=== PATIENT | female | born 1950 | race Caucasian/White ===

== ENCOUNTER → 2016-06-25 | Outpatient (CLI) | payer SELFPAY | LOC: LAB 11:47 | DX: R79.89 Other specified abnormal findings of blood chemistry (principal) ==

== ENCOUNTER → 2016-12-02 | Outpatient (CLI) | payer SELFPAY | LOC: LAB 09:48 | DX: Z00.00 Encounter for general adult medical examination without abnormal findings (principal); Z12.11 Encounter for screening for malignant neoplasm of colon; M35.00 Sjogren syndrome, unspecified; M85.80 Other specified disorders of bone density and structure, unspecified site; E03.9 Hypothyroidism, unspecified ==

== ENCOUNTER → 2016-12-08 | Outpatient (CLI) | payer SELFPAY | LOC: LAB 10:41 | DX: Z00.00 Encounter for general adult medical examination without abnormal findings (principal); Z12.11 Encounter for screening for malignant neoplasm of colon ==

== ENCOUNTER → 2017-01-05 | Outpatient (CLI) | payer SELFPAY | LOC: MAMMO 12-23 09:57 | DX: Z12.31 Encounter for screening mammogram for malignant neoplasm of breast (principal) | CPT/HCPCS: G0202 ==

== ENCOUNTER → 2017-01-13 | Outpatient (CLI) | payer SELFPAY | LOC: MAMMO 16:01 | DX: Z12.31 Encounter for screening mammogram for malignant neoplasm of breast (principal); N64.89 Other specified disorders of breast ==

== ENCOUNTER → 2018-03-21 | Outpatient (CLI) | payer MEDICARE, OTHER | LOC: RAD 09:46 | DX: M81.0 Age-related osteoporosis without current pathological fracture (principal); M85.852 Other specified disorders of bone density and structure, left thigh; M85.851 Other specified disorders of bone density and structure, right thigh ==

== ENCOUNTER → 2018-03-21 | Outpatient (CLI) | payer MEDICARE, OTHER | LOC: MAMMO 09:14 | DX: Z12.31 Encounter for screening mammogram for malignant neoplasm of breast (principal) ==

== ENCOUNTER → 2018-05-24 | Outpatient (CLI) | payer MEDICARE, OTHER | LOC: RAD 14:29 | DX: M25.571 Pain in right ankle and joints of right foot (principal); M79.671 Pain in right foot ==

== ENCOUNTER → 2018-07-03 | Outpatient (CLI) | payer MEDICARE, OTHER ==
[2018-07-04 06:56] LABS: CLUE CELLS PRESENT (Not Observd)
== END ==
LOC: LAB 10:49
PROVIDERS: Physician Assistant
DX: N94.9 Unspecified condition associated with female genital organs and menstrual cycle (principal)
CPT/HCPCS: Q0111

== ENCOUNTER → 2018-08-07 | Outpatient (CLI) | payer MEDICARE, OTHER ==
[2018-08-07 11:07] LABS: EOS # 0.5 (0.04-0.40); EOS % 7.1 % (1.0-5.0); HEMATOCRIT 38.3 % (37.0-47.0); HEMOGLOBIN 12.3 g/dL (12.5-16.0); LYMPH# 1.6 (1.50-4.00); MEAN CELL VOLUME 96 fl (78-100); MEAN CORPUSCULAR HEMOGLOBIN 31 pg (27-31); MEAN CORPUSCULAR HGB CONC 32 g/dL (33-37); MEAN PLATELET VOLUME 11.2 fl (7.4-10.4); MONO # 0.7 (0.20-0.80); NEU # 3.7 (1.40-6.50); PLATELET COUNT 231 K/mm3 (130-400); RED CELL DISTRIBUTION WIDTH 12.4 % (11.5-14.5); WHITE BLOOD COUNT 6.5 K/mm3 (4.8-10.8)
[2018-08-07 11:45] LABS: ALBUMIN 4.3 g/dL (3.4-4.8); POTASSIUM 3.9 mmol/L (3.5-5.1); TOTAL BILIRUBIN 0.4 mg/dL (0.2-1.2); TOTAL PROTEIN 8.2 g/dL (6.2-8.1)
[2018-08-07 12:33] LABS: ERYTHROCYTE SEDIMENTATION RATE 43 mm/hr (0-30)
== END ==
LOC: LAB 10:43
PROVIDERS: Internal Medicine
DX: Z00.00 Encounter for general adult medical examination without abnormal findings (principal); M81.0 Age-related osteoporosis without current pathological fracture; E03.9 Hypothyroidism, unspecified

== ENCOUNTER → 2018-10-10 | Outpatient (CLI) | payer MEDICARE, OTHER | LOC: LAB 09:30 | DX: Z00.00 Encounter for general adult medical examination without abnormal findings (principal); E03.9 Hypothyroidism, unspecified; M81.0 Age-related osteoporosis without current pathological fracture ==

== ENCOUNTER → 2018-11-30 | Outpatient (CLI) | payer MEDICARE, OTHER ==
[2018-11-30 14:18] LABS: CLUE CELLS NOT OBSERVED (Not Observd)
== END ==
LOC: LAB 10:32
PROVIDERS: Physician Assistant
DX: N89.8 Other specified noninflammatory disorders of vagina (principal); R10.2 Pelvic and perineal pain
CPT/HCPCS: Q0111

== ENCOUNTER → 2019-01-08 | Outpatient (CLI) | payer MEDICARE, OTHER | LOC: LAB 11:14 | DX: Z00.00 Encounter for general adult medical examination without abnormal findings (principal); M81.0 Age-related osteoporosis without current pathological fracture; E03.9 Hypothyroidism, unspecified ==

== ENCOUNTER → 2019-03-01 | Outpatient (CLI) | payer MEDICARE, OTHER | LOC: LAB 10:26 | DX: Z00.00 Encounter for general adult medical examination without abnormal findings (principal); E03.4 Atrophy of thyroid (acquired); M81.0 Age-related osteoporosis without current pathological fracture ==

== ENCOUNTER → 2019-03-14 | Outpatient (CLI) | payer MEDICARE, OTHER | LOC: LAB 10:57 | DX: Z00.00 Encounter for general adult medical examination without abnormal findings (principal); M81.0 Age-related osteoporosis without current pathological fracture; E03.9 Hypothyroidism, unspecified ==

== ENCOUNTER → 2019-03-20 | Outpatient (CLI) | payer MEDICARE, OTHER | LOC: RAD 09:22 | DX: M79.672 Pain in left foot (principal) ==

== ENCOUNTER → 2019-03-22 | Outpatient (CLI) | payer MEDICARE, OTHER | LOC: RAD 12:00 | DX: M84.372A Stress fracture, left ankle, initial encounter for fracture (principal); R60.0 Localized edema; M81.0 Age-related osteoporosis without current pathological fracture ==

== ENCOUNTER → 2019-04-04 | Outpatient (CLI) | payer MEDICARE, OTHER ==
[~2019-04-04] VITALS: Ht 157.5 cm; Wt 50.0 kg
[~2019-04-04] MED LIST: LEVO-T50 MCG PO
[2019-04-04 10:12] VITALS: BP 127/53
[2019-04-04 10:52] VITALS: BP 116/48
== END ==
LOC: AMSURD 09:49
DX: M81.0 Age-related osteoporosis without current pathological fracture (principal)
CPT/HCPCS: J3489

== ENCOUNTER → 2019-04-06 | Outpatient (CLI) | payer MEDICARE, OTHER ==
[2019-04-04 10:52] VITALS: BP 116/48
== END ==
LOC: RAD 13:23
DX: M84.375A Stress fracture, left foot, initial encounter for fracture (principal)

== ENCOUNTER → 2019-06-18 | Outpatient (CLI) | payer MEDICARE, OTHER ==
[2019-04-04 10:52] VITALS: BP 116/48
== END ==
LOC: LAB 13:40
DX: E03.9 Hypothyroidism, unspecified (principal)

== ENCOUNTER → 2019-09-25 | Outpatient (CLI) | payer MEDICARE, OTHER ==
[2019-04-04 10:52] VITALS: BP 116/48
== END ==
LOC: LAB 10:41
DX: E03.9 Hypothyroidism, unspecified (principal)

== ENCOUNTER → 2019-11-12 | Outpatient (CLI) | payer MEDICARE, OTHER ==
[2019-04-04 10:52] VITALS: BP 116/48
[2019-11-12 13:50] LABS: EOS # 0.1 (0.04-0.40); EOS % 1.1 % (1.0-5.0); HEMATOCRIT 38.5 % (37.0-47.0); HEMOGLOBIN 12.2 g/dL (12.5-16.0); LYMPH# 1.3 (1.50-4.00); MEAN CELL VOLUME 97 fl (78-100); MEAN CORPUSCULAR HEMOGLOBIN 31 pg (27-31); MEAN CORPUSCULAR HGB CONC 32 g/dL (33-37); MONO # 0.9 (0.20-0.80); NEU # 5.7 (1.40-6.50); PLATELET COUNT 270 K/mm3 (130-400); RED BLOOD COUNT 3.98 M/mm3 (4.10-5.30); RED CELL DISTRIBUTION WIDTH 12.8 % (11.5-14.5); WHITE BLOOD COUNT 7.9 K/mm3 (4.8-10.8)
[2019-11-12 13:52] LABS: ALBUMIN 4.3 g/dL (3.4-4.8); POTASSIUM 4.2 mmol/L (3.5-5.1)
[2019-11-12 13:53] LABS: CALCIUM 9.5 mg/dL (8.3-10.5)
[2019-11-12 13:55] LABS: TOTAL PROTEIN 7.8 g/dL (6.2-8.1)
[2019-11-12 13:57] LABS: TOTAL BILIRUBIN 0.4 mg/dL (0.2-1.2)
[2019-11-12 14:37] LABS: ERYTHROCYTE SEDIMENTATION RATE 14 mm/hr (0-30)
== END ==
LOC: LAB 13:15
PROVIDERS: Internal Medicine
DX: Z12.11 Encounter for screening for malignant neoplasm of colon (principal); E78.2 Mixed hyperlipidemia; M81.0 Age-related osteoporosis without current pathological fracture; E03.9 Hypothyroidism, unspecified; M35.03 Sjogren syndrome with myopathy

== ENCOUNTER → 2020-04-02 | Outpatient (CLI) | payer MEDICARE, OTHER ==
[2019-04-04 10:52] VITALS: BP 116/48
== END ==
LOC: RAD 10:49
DX: Z13.820 Encounter for screening for osteoporosis (principal); M81.0 Age-related osteoporosis without current pathological fracture

== ENCOUNTER → 2020-04-02 | Outpatient (CLI) | payer MEDICARE, OTHER ==
[2019-04-04 10:52] VITALS: BP 116/48
== END ==
LOC: MAMMO 10:45
DX: Z12.31 Encounter for screening mammogram for malignant neoplasm of breast (principal); M81.0 Age-related osteoporosis without current pathological fracture

== ENCOUNTER → 2021-05-06 | Outpatient (CLI) | payer MEDICARE, OTHER | LOC: MAMMO 10:33 | DX: Z12.31 Encounter for screening mammogram for malignant neoplasm of breast (principal) ==

== ENCOUNTER → 2022-04-07 | Outpatient (CLI) | payer MEDICARE, OTHER | LOC: MAMMO 13:00 | DX: M81.0 Age-related osteoporosis without current pathological fracture (principal) ==

== ENCOUNTER → 2022-11-15 | Outpatient (CLI) | payer MEDICARE, OTHER | LOC: RAD 09:54 | DX: R07.9 Chest pain, unspecified (principal) ==

== ENCOUNTER → 2023-01-25 | Outpatient (CLI) | payer MEDICARE, OTHER | LOC: MAMMO 15:30 | DX: Z12.31 Encounter for screening mammogram for malignant neoplasm of breast (principal) ==

== ENCOUNTER → 2023-12-12 | Outpatient (CLI) | payer MEDICARE, OTHER ==
[~2023-12-12] MED LIST changes: +CELECOXIB100 M1 PO; +DOXYCYCLINE MO100 M3 PO; +ESTRADIOL0.5 M1 PO; +IBANDRONATE SO150 MG PO
[2023-12-12 11:01] LABS: BASO # 0.01 K/mm3 (0.02-0.10); EOS # 0.11 K/mm3 (0.04-0.40); EOS % 1.5 % (1.0-5.0); HEMATOCRIT 38.8 % (37.0-47.0); HEMOGLOBIN 12.3 g/dL (12.5-16.0); LYMPH# 1.25 K/mm3 (1.50-4.00); MEAN CELL VOLUME 99 fl (78-100); MEAN CORPUSCULAR HEMOGLOBIN 31 pg (27-31); MEAN CORPUSCULAR HGB CONC 32 g/dL (33-37); MEAN PLATELET VOLUME 10.1 fl (7.4-10.4); MONO # 0.84 K/mm3 (0.20-0.80); NEU # 4.91 K/mm3 (1.40-6.50); PLATELET COUNT 310 K/mm3 (130-400); RED BLOOD COUNT 3.94 M/mm3 (4.10-5.30); RED CELL DISTRIBUTION WIDTH 12.6 % (11.5-14.5); WHITE BLOOD COUNT 7.2 K/mm3 (4.8-10.8)
[2023-12-12 11:09] LABS: ALBUMIN 4.3 g/dL (3.4-4.8)
[2023-12-12 11:10] LABS: CALCIUM 9.6 mg/dL (8.3-10.5)
[2023-12-12 11:11] LABS: TOTAL PROTEIN 7.7 g/dL (6.2-8.1)
[2023-12-12 11:13] LABS: TOTAL BILIRUBIN 0.4 mg/dL (0.2-1.2)
[2023-12-12 11:18] LABS: MAGNESIUM 2.11 mg/dL (1.60-2.60)
== END ==
LOC: LAB 10:42
PROVIDERS: Internal Medicine
DX: Z12.11 Encounter for screening for malignant neoplasm of colon (principal); E03.4 Atrophy of thyroid (acquired); E78.2 Mixed hyperlipidemia; M81.0 Age-related osteoporosis without current pathological fracture; E53.8 Deficiency of other specified B group vitamins

== ENCOUNTER 2023-12-18 13:47 | Emergency (ER) | payer MEDICARE, OTHER ==
[~2023-12-18] VITALS: Ht 157.5 cm; Wt 49.1 kg
[~2023-12-18 13:47] MED LIST changes: -CELECOXIB100 M1 PO; -DOXYCYCLINE MO100 M3 PO; -ESTRADIOL0.5 M1 PO; -IBANDRONATE SO150 MG PO
[2023-12-18] MEDS ORDERED: DOXYCYCLINE MO100 M3 PO (14:00)
[2023-12-18] MEDS ORDERED: CELECOXIB100 M1 PO (14:01)
[2023-12-18] MEDS ORDERED: ESTRADIOL0.5 M1 PO (14:01)
[2023-12-18] MEDS ORDERED: IBANDRONATE SO150 MG PO (14:01)
[2023-12-18 15:01] VITALS: BP 125/68
== END 2023-12-18 15:05 | disposition short-term general hospital (02) ==
LOC: ED 13:47
DX: L03.011 Cellulitis of right finger (principal)

== ENCOUNTER → 2024-02-06 | Outpatient (CLI) | payer MEDICARE, OTHER ==
[~2024-02-06] MED LIST changes: +CELECOXIB100 M1 PO; +DOXYCYCLINE MO100 M3 PO; +ESTRADIOL0.5 M1 PO; +IBANDRONATE SO150 MG PO
[2024-02-06 13:13] LABS: URINE APPEARANCE CLEAR (CLEAR); URINE BILIRUBIN NEGATIVE (NEGATIVE); URINE BLOOD NEGATIVE (NEGATIVE); URINE COLOR YELLOW (YELLOW); URINE GLUCOSE NEGATIVE (NEGATIVE); URINE KETONE NEGATIVE (NEGATIVE); URINE LEUKOCYTE ESTERASE TRACE (NEGATIVE); URINE NITRATE NEGATIVE (NEGATIVE); URINE PROTEIN(semi-quant) NEGATIVE (NEGATIVE)
== END ==
LOC: LAB 12:57
PROVIDERS: Internal Medicine
DX: R35.0 Frequency of micturition (principal)

== ENCOUNTER → 2024-02-08 | Outpatient (CLI) | payer MEDICARE, OTHER | LOC: MAMMO 09:00 | DX: Z12.31 Encounter for screening mammogram for malignant neoplasm of breast (principal) ==

== ENCOUNTER → 2024-03-27 | Outpatient (CLI) | payer MEDICARE, OTHER ==
[2024-03-27 11:04] LABS: URINE APPEARANCE CLEAR (CLEAR); URINE BILIRUBIN NEGATIVE (NEGATIVE); URINE BLOOD NEGATIVE (NEGATIVE); URINE COLOR YELLOW (YELLOW); URINE GLUCOSE NEGATIVE (NEGATIVE); URINE KETONE NEGATIVE (NEGATIVE); URINE LEUKOCYTE ESTERASE NEGATIVE (NEGATIVE); URINE NITRATE NEGATIVE (NEGATIVE); URINE PROTEIN(semi-quant) NEGATIVE (NEGATIVE); URINE WBC 0-1 /hpf (0-3)
== END ==
LOC: LAB 10:12
PROVIDERS: Internal Medicine
DX: N39.0 Urinary tract infection, site not specified (principal)

== ENCOUNTER → 2024-04-10 | Outpatient (CLI) | payer MEDICARE, OTHER ==
[2024-04-10 12:30] LABS: URINE WBC 0 /hpf (0-3)
[2024-04-10 13:06] LABS: URINE APPEARANCE CLEAR (CLEAR); URINE BILIRUBIN NEGATIVE (NEGATIVE); URINE BLOOD NEGATIVE (NEGATIVE); URINE COLOR YELLOW (YELLOW); URINE GLUCOSE NEGATIVE (NEGATIVE); URINE KETONE NEGATIVE (NEGATIVE); URINE LEUKOCYTE ESTERASE NEGATIVE (NEGATIVE); URINE MUCUS PRESENT (NOT PRESENT); URINE NITRATE NEGATIVE (NEGATIVE); URINE PROTEIN(semi-quant) NEGATIVE (NEGATIVE)
== END ==
LOC: LAB 12:22
PROVIDERS: Internal Medicine
DX: R10.2 Pelvic and perineal pain (principal)

== ENCOUNTER → 2024-04-13 | Outpatient (CLI) | payer MEDICARE, OTHER ==
[2024-04-13 12:32] LABS: BASO # 0.02 K/mm3 (0.02-0.10); EOS # 0.14 K/mm3 (0.04-0.40); EOS % 1.6 % (1.0-5.0); HEMATOCRIT 38.4 % (37.0-47.0); HEMOGLOBIN 12.4 g/dL (12.5-16.0); LYMPH# 1.21 K/mm3 (1.50-4.00); MEAN CELL VOLUME 95 fl (78-100); MEAN CORPUSCULAR HEMOGLOBIN 31 pg (27-31); MEAN CORPUSCULAR HGB CONC 32 g/dL (33-37); MEAN PLATELET VOLUME 10.4 fl (7.4-10.4); MONO # 0.74 K/mm3 (0.20-0.80); NEU # 6.36 K/mm3 (1.40-6.50); PLATELET COUNT 314 K/mm3 (130-400); RED BLOOD COUNT 4.03 M/mm3 (4.10-5.30); RED CELL DISTRIBUTION WIDTH 12.5 % (11.5-14.5); WHITE BLOOD COUNT 8.5 K/mm3 (4.8-10.8)
[2024-04-13 12:40] LABS: ALBUMIN 4.4 g/dL (3.4-4.8); SODIUM 140 mmol/L (136-145)
[2024-04-13 12:41] LABS: CALCIUM 9.4 mg/dL (8.3-10.5)
[2024-04-13 12:42] LABS: GLUCOSE 111 mg/dL (65-105); TOTAL PROTEIN 8.3 g/dL (6.2-8.1)
[2024-04-13 12:43] LABS: CARBON DIOXIDE 25 mmol/L (23-31)
[2024-04-13 12:44] LABS: TOTAL BILIRUBIN 0.4 mg/dL (0.2-1.2)
[2024-04-13 12:47] LABS: AST-SGOT 18 U/L (5-34)
[2024-04-13 12:49] LABS: ALT/SGPT 13 U/L (0-55); LIPASE 42 U/L (8-78)
== END ==
LOC: LAB 12:16
PROVIDERS: Internal Medicine
DX: R10.31 Right lower quadrant pain (principal)

== ENCOUNTER → 2024-04-16 | Outpatient (CLI) | payer MEDICARE, OTHER ==
[~2024-04-16] MED LIST changes: +Iohexol 300 - 100 ML VIAL IV ONE; +NS 100 ML IV SCH
== END ==
LOC: RAD 09:59
DX: K57.30 Diverticulosis of large intestine without perforation or abscess without bleeding (principal); K86.89 Other specified diseases of pancreas
CPT/HCPCS: Q9967